=== PATIENT | male | born 1975 | race Two or more races ===

== ENCOUNTER 2016-06-28 10:58 | Emergency (ER) | payer BC ==
[~2016-06-28] VITALS: Ht 172.7 cm; Wt 83.0 kg
[2016-06-28 11:27] VITALS: BP 143/90
== END 2016-06-28 12:00 | disposition home or self-care (01) ==
LOC: ER 11:06
DX: J42 Unspecified chronic bronchitis (principal); H10.33 Unspecified acute conjunctivitis, bilateral; F17.200 Nicotine dependence, unspecified, uncomplicated

== ENCOUNTER 2016-06-30 08:10 | Emergency (ER) | payer BC ==
[~2016-06-30] VITALS: Ht 172.7 cm; Wt 83.0 kg
[2016-06-30] MEDS ORDERED: cefTRIAXone W LIDOCAINE 1 GM IM IM ONE (09:15)
[2016-06-30] MEDS ORDERED: IPRATROPIUM BROM 0.5 MG/2.5ML INH SOL NEB ONE (09:15)
[2016-06-30] MEDS ORDERED: ALBUTEROL SULF 2.5 MG/0.5ML(0.5%) NEB SOLN NEB ONE (09:15)
[2016-06-30 09:20] LABS: Basophils # (auto) 0 uL; Basophils % (auto) 0.2 % (0.0-2.0); Eosinophils # (auto) 0.2 uL; Eosinophils % (auto) 2.7 % (0.0-7.0); Hemoglobin 18.1 g/dL (13.5-17.5); Lymphocytes # (auto) 1.5 uL; Lymphocytes % (auto) 21.3 % (10.0-50.0); Mean Corpuscular Hemoglobin 30.1 pg (28.0-32.0); Mean Corpuscular Hgb Conc. 34.8 g/dL (32.0-36.0); Mean Corpuscular Volume 86.7 fL (80.0-100.0); Mean Platelet Volume 9.1 fL (7.4-10.4); Monocytes # (auto) 0.9 uL; Monocytes % (auto) 12.9 % (0.0-12.0); Neutrophils # (auto) 4.6 uL; Neutrophils % (auto) 62.9 % (37.0-80.0); Platelet Count (auto) 187 10^3/uL (140-450); Red Cell Distribution Width 13.6 % (11.6-16.0); White Blood Cell 7.3 10^3/uL (4.4-10.8)
[2016-06-30] MEDS ORDERED: cefTRIAXone SOD 1,000 MG VL ONE (09:35)
[2016-06-30 09:40] LABS: Albumin 3.7 g/dL (3.4-5.0); BUN/Creatinine Ratio 15.2; Calcium 8.7 mg/dL (8.5-10.1); Potassium 3.8 mmol/L (3.5-5.1); Total Protein 7.6 g/dL (6.4-8.2)
[2016-06-30 10:50] VITALS: BP 157/88
== END 2016-06-30 10:56 | disposition home or self-care (01) ==
LOC: ER 08:10
DX: J42 Unspecified chronic bronchitis (principal); F17.210 Nicotine dependence, cigarettes, uncomplicated
CPT/HCPCS: 36415; 71020; 80053; 85025; 94640; 96372; 99285; J0696